=== PATIENT | female | born 1975 | race Caucasian/White ===

== ENCOUNTER 2017-10-30 14:25 | Inpatient (IN) | payer OTHER ==
[2017-10-30 17:33] VITALS: BMI 32.2
--- NOTE | 2017-10-30 21:32 | HP ---
COWS - Scale Resting Pulse: 1= [place] 81-100 Sweatin=Flushed/Facial Moisture Restless Observation: 1= Difficult to Sit Still Pupil Size: 0= Normal to Room Light Bone or Joint Aches: 2= Severe Diffuse Aches Runny Nose/ Eye Tearin= Runny Nose/Eyes GI Upset > 30mins: 2= Nausea/Diarrhea (diarrhea x 3) Tremor Observation: 4= Gross Tremor/Twitching Yawning Observation: 0= None Anxiety or Irritability: 1=Feels Anxious/Irritable Goose Flesh Skin: 0=Smooth Skin COWS Score: 15 CIWA Score - CIWA Score Nausea/Vomitin Muscle Tremors: 3 Anxiety: 3 Agitation: 3 Paroxysmal Sweats: 1-Minimal Palms Moist Orientation: 0-Oriented Tacttile Disturbances: 0-None Auditory Disturbances: 0-None Visual Disturbances: 0-None Headache: 0-None Present CIWA-Ar Total Score: 13 Admission ROS S - HPI Chief Complaint: Heroin and alcohol withdrawal symptoms Allergies/Adverse Reactions: Allergies Allergy/AdvReac Type Severity Reaction Status Date / Time No Known Allergies Allergy Verified 10/30/17 17:54 History of Present Illness: 42 years old female with a 10 years history pf alcohol and heroin dependence is seeking admission to detox. Patient has been to previous detox, last at [facility] 2 years ago. She reports medical history of right knee arthritis and depression. she reports 2 years of sobriety. Exam Limitations: No Limitations - Ebola screening Have you traveled outside of the country in the last 21 days: No Have you had contact with anyone from an Ebola affected area: No Have you been sick,other than usual withdrawal symptoms: No Do you have a fever: No - Review of Systems Constitutional: Chills, Loss of Appetite, Malaise, Night Sweats, Changes in sleep, Weakness EENT: reports: No Symptoms Reported Respiratory: reports: No Symptoms reported Cardiac: reports: No Symptoms Reported GI: reports: Diarrhea (x 3), Poor Appetite, Poor Fluid Intake, Vomiting, Abdominal cramping : reports: No Symptoms Reported Musculoskeletal: reports: No Symptoms Reported Integumentary: reports: Dryness, Flushing Neuro: reports: Tingling, Tremors Endocrine: reports: No Symptoms Reported Hematology: reports: No Symptoms Reported Psychiatric: reports: Orientated x3, Anxious, Depressed Other Systems: Reviewed and Negative Patient History - Patient Medical History Hx Anemia: No Hx Asthma: No Hx Chronic Obstructive Pulmonary Disease (COPD): No Hx Cancer: No Hx Cardiac Disorders: No Hx Hypertension: No Hx Seizures: No Hx Diabetes: No Hx Gastrointestinal Disorders: No Hx Liver Disease: No Hx Genitourinary Disorders: No Hx Sexually Transmitted Disorders: No Hx Renal Disease (ESRD): No Hx Thyroid Disease: No Hx Human Immunodeficiency Virus (HIV): No (Negative 2018) Hx Hepatitis C: No Hx Depression: Yes Hx Suicide Attempt: No Hx Bipolar Disorder: No Hx Schizophrenia: No - Patient Surgical History Past Surgical History: Yes Hx Neurologic Surgery: No Hx Cataract Extraction: No Hx Cardiac Surgery: No Hx Lung Surgery: No Hx Abdominal Surgery: No Hx Appendectomy: No Hx Cholecystectomy: Yes (1 month ago [facility] Hx Genitourinary Surgery: No Hx Orthopedic Surgery: No Anesthesia Reaction: No - PPD History Previous Implant?: Yes Documented Results: Negative w/o proof Implanted On Prior R Admission?: No - Reproductive History Last Menstrual Period: 10/22/17 Patient : No - Smoking Cessation Smoking history: Current every day smoker Have you smoked in the past 12 months: Yes Aproximately how many cigarettes per day: 5 Hx Chewing Tobacco Use: No Initiated information on smoking cessation: Yes 'Breaking Loose' booklet given: 10/30/17 - Substances Abused Heroin Route: Inhalation Frequency: Daily Amount used: 10 bags Age of first use: 25 Date of Last Use: 10/29/17 Alcohol Route: Oral Frequency: Daily Amount used: 7-8 beers Age of first use: 11 Date of Last Use: 10/29/17 Crack Route: Smoking Frequency: Daily Amount used: $1000 Age of first use: 40 Date of Last Use: 10/29/17 Family Disease History - Family Disease History Family History: Denies Admission Physical Exam BHS - Vital Signs Vital Signs: Vital Signs - 24 hr 10/30/17 17:31 Temperature 98.3 F Pulse Rate 84 Respiratory 20 Rate Blood Pressure 138/91 - Physical General Appearance: Yes: Moderate Distress, Tremorous, Irritable, Sweating, Anxious HEENTM: Yes: Normal ENT Inspection, Normal Voice, MARYBETH Respiratory: Yes: Lungs Clear, Normal Breath Sounds, No Respiratory Distress Neck: Yes: Supple Breast: Yes: Breast Exam Deferred Cardiology: Yes: Regular Rhythm, Regular Rate Abdominal: Yes: Normal Bowel Sounds Genitourinary: Yes: Within Normal Limits Back: Yes: Normal Inspection Musculoskeletal: Yes: Back pain, Muscle Pain Extremities: Yes: Tremors Neurological: Yes: Alert, Normal Mood/Affect Integumentary: Yes: Warm Lymphatic: Yes: Within Normal Limits - Diagnostic (1) Alcohol dependence with uncomplicated withdrawal Current Visit: Yes Status: Chronic (2) Opioid dependence with withdrawal Current Visit: Yes Status: Chronic (3) Cocaine dependence, uncomplicated Current Visit: Yes Status: Chronic (4) Arthritis Current Visit: Yes Status: Chronic Cleared for Admission [facility] - Detox or Rehab [facility] Level of Care: Medically Managed Detox Regimen/Protocol: Methadone/Librium [facility] Breath Alcohol Content Breath Alcohol Content: 0 Urine Drug Screen - Results Drug Screen Negative: No Urine Drug Screen Results: FADUMO-Cocaine, OPI-Opiates, BZO-Benzodiazepines
[2017-10-30] MEDS ORDERED: MAGNESIUM HYDROX 2400MG/30ML ORAL SUSPENSION 30 ML CUP PO PRN (21:40)
[2017-10-30] MEDS ORDERED: guaiFENesin/D-METHORPHAN HB 10 ML UNIT-DOSE CUPS PO PRN (21:40)
[2017-10-30] MEDS ORDERED: P-EPHED 60MG/TRIPROLIDI 2.5MG TABLET PO PRN (21:40)
[2017-10-30] MEDS ORDERED: ACETAMINOPHEN 325 MG TABLET (FP) PO PRN (21:40)
[2017-10-30] MEDS ORDERED: MAG HYDROX/AL HYDROX/SIMETH 30 ML UNIT-DOSE CUP PO PRN (21:40)
[2017-10-30] MEDS ORDERED: LOPERAMIDE HCL 2 MG CAPSULE PO PRN (21:40)
[2017-10-30] MEDS ORDERED: METHADONE HCL 10 MG TABLET (FOR DETOX USE ONLY) PO ONE ×4 (21:40→23:00)
[2017-10-30] MEDS ORDERED: MAGNESIUM CITRATE 300 ML BOTTLE PO PRN (21:40)
[2017-10-30] MEDS ORDERED: MENTHOL/PHENOL 1 EACH UD MM PRN (21:40)
[2017-10-30] MEDS ORDERED: chlordiazePOXIDE HCL 25 MG CAPSULE PO PRN (21:43)
[2017-10-30] MEDS ORDERED: MELATONIN 5 MG TABLETS PO PRN (22:00)
[2017-10-30] MEDS ORDERED: chlordiazePOXIDE HCL 25 MG CAPSULE PO SCH (23:00)
[2017-10-30] MEDS: chlordiazePOXIDE HCL 25 MG CAPSULE PO SCH (23:03)
[2017-10-30] MEDS: THIAMINE HCL 100 MG TABLET (FP) PO SCH (23:08)
[2017-10-31 01:30] LABS: URINE APPEARANCE CLOUDY; URINE BILIRUBIN NEGATIVE (<2.0 mg/dL); URINE COLOR YELLOW; URINE GLUCOSE (UA) NEGATIVE (NEGATIVE); URINE KETONE NEGATIVE (NEGATIVE); URINE LEUK ESTERASE NEGATIVE (NEGATIVE); URINE NITRITE POSITIVE (NEGATIVE); URINE PROTEIN NEGATIVE (NEGATIVE); URINE UROBILINOGEN NEGATIVE mg/dL (0.2-1.0)
[2017-10-31 02:00] LABS: EPI CELLS MODERATE /HPF (FEW); URINE BACTERIA RARE /hpf (NONE SEEN); URINE MUCUS MANY
[2017-10-31] MEDS: chlordiazePOXIDE HCL 25 MG CAPSULE PO SCH ×4 (05:14→22:10)
--- NOTE | 2017-10-31 08:55 | PN ---
[facility] CIWA - CIWA Score Nausea/Vomitin Muscle Tremors: 3 Anxiety: 3 Agitation: 3 Paroxysmal Sweats: 1-Minimal Palms Moist Orientation: 0-Oriented Tacttile Disturbances: 1-Very Mild Itch/Numbness Auditory Disturbances: 1-Very Mild Visual Disturbances: 0-None Headache: 2-Mild CIWA-Ar Total Score: 17 [facility]HS COWS - Scale Resting Pulse: 0= [place] 80 or Below Sweatin= Chills/Flushing Restless Observation: 3= Extraneous Movement Pupil Size: 1= Pupils >than Normal Bone or Joint Aches: 2= Severe Diffuse Aches Runny Nose/ Eye Tearin= Runny Nose/Eyes GI Upset > 30mins: 3= Vomiting/Diarrhea Tremor Observation of Outstretched Hands: 2= Slight Tremor Visible Yawning Observation: 1= 1-2x During Session Anxiety or Irritability: 2=Irritable/Anxious Goose Flesh Skin: 0=Smooth Skin COWS Score: 17 [facility] Progress Note (SOAP) Subjective: ALERT,IRRITABLE,ANXIOUS,INTERRUPTED SLEEP,TREMOR,PAIN IN THE BODY AND BACK Objective: 10/31/17 08:52 Vital Signs Temperature 97.9 F 10/31/17 07:15 Pulse Rate 64 10/31/17 07:15 Respiratory Rate 18 10/31/17 07:15 Blood Pressure 107/63 10/31/17 07:15 O2 Sat by Pulse Oximetry (%) EKG NSR,NORMAL ECG,PROLONG QT 386/442 NO CHEST PAIN,NO SOB,NO DIZZINESS Laboratory Last Values Urine Color Yellow 10/31/17 00:03 Urine Appearance Cloudy 10/31/17 00:03 Urine pH 6.0 (5.0-8.0) 10/31/17 00:03 Ur Specific [place] 1.013 (1.001-1.035) 10/31/17 00:03 Urine Protein Negative (NEGATIVE) 10/31/17 00:03 Urine Glucose (UA) Negative (NEGATIVE) 10/31/17 00:03 Urine Ketones Negative (NEGATIVE) 10/31/17 00:03 Urine Blood Negative (NEGATIVE) 10/31/17 00:03 Urine Nitrite Positive (NEGATIVE) 10/31/17 00:03 Urine Bilirubin Negative (<2.0 mg/dL) 10/31/17 00:03 Urine Urobilinogen Negative mg/dL (0.2-1.0) 10/31/17 00:03 Ur Leukocyte Esterase Negative (NEGATIVE) 10/31/17 00:03 Urine WBC (Auto) 14 /hpf (3-5) 10/31/17 00:03 Urine RBC (Auto) 1 /hpf (0-3) 10/31/17 00:03 Ur Epithelial Cells Moderate /HPF (FEW) 10/31/17 00:03 Urine Bacteria Rare /hpf (NONE SEEN) 10/31/17 00:03 Urine Mucus Many 10/31/17 00:03 WITHDRAWAL SYMPTOM NO URINARY SYMPTOM 10/31/17 08:55 LABS PENDING Assessment: 10/31/17 08:55 CONTINUE DETOX Plan: CONTINUE DETOX,ENCOURAGE ORAL FLUID,
[2017-10-31] MEDS ORDERED: METHADONE HCL 10 MG TABLET (FOR DETOX USE ONLY) PO SCH ×2 (10:00)
[2017-10-31] MEDS: SERTRALINE HCL 50 MG TABLET (FP) PO SCH (10:11)
[2017-10-31] MEDS: PRENATAL VITAMINS W/ FOLIC ACID TABLET (FP) PO SCH (10:11)
[2017-10-31] MEDS: QUEtiapine FUMARATE 200 MG TABLET PO SCH (10:12)
[2017-10-31 10:17] LABS: HEMOGLOBIN 11.1 GM/dL (10.7-15.3); MCH 25.9 pg (25.7-33.7); MCHC 32.7 g/dl (32.0-36.0); MEAN CELL VOLUME 79.4 fl (80-96); MEAN PLT VOLUME 7.7 fl (7.5-11.1); PLATELET COUNT 366 K/MM3 (134-434); RBC 4.28 M/mm3 (3.60-5.2); RDW 15.2 % (11.6-15.6); WHITE BLOOD COUNT 8.1 K/mm3 (4.0-10.0)
[2017-10-31 10:56] LABS: CHLORIDE 106 mmol/L (98-107); POTASSIUM 3.2 mmol/L (3.5-5.1); SODIUM 142 mmol/L (136-145)
--- NOTE | 2017-10-31 11:18 | CONSULT ---
[facility] Psychiatric Consult - Data Date of interview: 10/31/17 Admission source: [facility] Identifying data: This is 42 years old female, single mother of one, unemployed , living at [facility], [place], with no psychiatric hospitalization history,m with a 10 years history pf alcohol and heroin dependence is seeking admission to detox, reporting withdrawal symptoms. Substance Abuse History: Smoking history: Current every day smoker. Have you smoked in the past 12 months: Yes. Aproximately how many cigarettes per day: 5. Hx Chewing Tobacco Use: No. Initiated information on smoking cessation: Yes. 'Breaking Loose' booklet given: 10/30/17. - Substances Abused. Heroin. Route: Inhalation. Frequency: Daily. Amount used: 10 bags. Age of first use: 25. Date of Last Use: 10/29/17. Alcohol. Route: Oral. Frequency: Daily. Amount used: 7-8 beers. Age of first use: 11. Date of Last Use: 10/29/17. Crack. Route: Smoking. Frequency: Daily. Amount used: $ 1000. Age of first use: 40. Date of Last Use: 10/29/17 Medical History: Patient reports right knee arthritis history Psychiatric History: Rosa person history of depression, reports no psychiatric hospitalization history, denies suicidal, homicidal history, reports taking for a long time: Zoloft 100mg poqd. Seroquel 200mg poqd. Seroquel 600mg po qhs. Patient insist on to continue preadmission medications inspite of MD warning poatient can be oversedated, patienty responded:" this is my 3rd detox and all the time I was given my home medications" Physical/Sexual Abuse/Trauma History: Denies Additional Comment: Zoloft 100mg poqd. Seroquel 200mg poqd. Seroquel 600mg po qhs Mental Status Exam - Mental Status Exam Alert and Oriented to: Person Cognitive Function: Fair Patient Appearance: Unkempt Mood: Apprehensive Affect: Mood Congruent Patient Behavior: Cooperative Speech Pattern: Appropriate Voice Loudness: Mildly Soft/Quiet Thought Process: Goal Oriented Thought Disorder: Being Controlled Hallucinations: Denies Suicidal Ideation: Denies Homicidal Ideation: Denies Insight/Judgement: Fair Sleep: Difficulty falling asleep Appetite: Weight gain Muscle strength/Tone: Mild Hypotonicity Gait/Station: Shuffling Additional Comments: Zoloft 100mg poqd. Seroquel 200mg poqd. Seroquel 600mg po qhs Psychiatric Findings - Problem List ([place] 1, 2,3) (1) Nicotine dependence Current Visit: Yes Status: Acute (2) Alcohol dependence with uncomplicated withdrawal Current Visit: Yes Status: Chronic (3) Cocaine dependence, uncomplicated Current Visit: Yes Status: Chronic (4) Opioid dependence with withdrawal Current Visit: Yes Status: Chronic - Initial Treatment Plan Initial Treatment Plan: Zoloft 100mg poqd. Seroquel 200mg poqd. Seroquel 600mg po qhs
[2017-10-31 12:06] LABS: ALBUMIN 3.2 g/dl (3.4-5.0); ALK PHOS 69 U/L (45-117); ANION GAP 8 (8-16); BILIRUBIN,TOTAL 0.2 mg/dL (0.2-1.0); BLOOD UREA NITROGEN 8 mg/dL (7-18); CALCIUM 8.5 mg/dL (8.5-10.1); CO2 28 mmol/L (21-32); CREATININE 0.7 mg/dL (0.55-1.02); GLUCOSE,RANDOM 124 mg/dL (74-106); SGOT/AST 6 U/L (15-37); SGPT/ALT 11 U/L (12-78); TOT PROT 6.6 g/dl (6.4-8.2)
--- NOTE | 2017-10-31 13:32 | EKG ---
Test Reason : Blood Pressure : / mmHG Vent. Rate : 079 BPM Atrial Rate : 079 BPM P-R Int : 138 ms QRS Dur : 080 ms QT Int : 386 ms P-R-T Axes : 025 009 012 degrees QTc Int : 442 ms NORMAL SINUS RHYTHM NORMAL ECG NO PREVIOUS ECGS AVAILABLE Confirmed by SILVIA WALKER, YOEL ([id number]) on 10/31/2017 1:32:05 PM Referred By: Confirmed By:YOEL VEGA MD
[2017-10-31] MEDS: chlordiazePOXIDE HCL 25 MG CAPSULE PO PRN (14:09)
[2017-10-31 14:32] LABS: URINE APPEARANCE SLCLOUDY; URINE BILIRUBIN NEGATIVE (<2.0 mg/dL); URINE COLOR YELLOW; URINE GLUCOSE (UA) 1+ (NEGATIVE); URINE KETONE NEGATIVE (NEGATIVE); URINE LEUK ESTERASE NEGATIVE (NEGATIVE); URINE NITRITE POSITIVE (NEGATIVE); URINE PROTEIN NEGATIVE (NEGATIVE); URINE UROBILINOGEN NEGATIVE mg/dL (0.2-1.0)
[2017-10-31 14:41] LABS: EPI CELLS FEW /HPF (FEW); URINE BACTERIA MODERATE /hpf (NONE SEEN); URINE MUCUS RARE
[2017-10-31] MEDS: THIAMINE HCL 100 MG TABLET (FP) PO SCH (22:09)
[2017-10-31] MEDS: QUEtiapine FUMARATE 300 MG TABLET PO SCH (22:09)
[2017-10-31] MEDS ORDERED: chlordiazePOXIDE HCL 25 MG CAPSULE PO SCH (23:00)
[2017-11-01] MEDS: chlordiazePOXIDE HCL 25 MG CAPSULE PO SCH ×3 (05:07→17:29)
--- NOTE | 2017-11-01 09:22 | PN ---
S CIWA - CIWA Score Nausea/Vomitin Muscle Tremors: 3 Anxiety: 2 Agitation: 2 Paroxysmal Sweats: 1-Minimal Palms Moist Orientation: 0-Oriented Tacttile Disturbances: 1-Very Mild Itch/Numbness Auditory Disturbances: 1-Very Mild Visual Disturbances: 0-None Headache: 2-Mild CIWA-Ar Total Score: 15 [facility] COWS - Scale Resting Pulse: 0= [place] 80 or Below Sweatin= Chills/Flushing Restless Observation: 3= Extraneous Movement Pupil Size: 1= Pupils >than Normal Bone or Joint Aches: 2= Severe Diffuse Aches Runny Nose/ Eye Tearin= Runny Nose/Eyes GI Upset > 30mins: 2= Nausea/Diarrhea Tremor Observation of Outstretched Hands: 2= Slight Tremor Visible Yawning Observation: 1= 1-2x During Session Anxiety or Irritability: 2=Irritable/Anxious Goose Flesh Skin: 0=Smooth Skin COWS Score: 16 S Progress Note (SOAP) Subjective: ALERT,IRRITABLE,ANXIOUS,INTERRUPTED SLEEP,TREMOR,PAIN IN THE BODY AND BACK Objective: 11/01/17 09:20 Vital Signs Temperature 98.1 F 11/01/17 09:16 Pulse Rate 71 11/01/17 09:16 Respiratory Rate 18 11/01/17 09:16 Blood Pressure 98/58 11/01/17 09:16 O2 Sat by Pulse Oximetry (%) Laboratory Last Values WBC 8.1 K/mm3 (4.0-10.0) 10/31/17 07:30 RBC 4.28 M/mm3 (3.60-5.2) 10/31/17 07:30 Hgb 11.1 GM/dL (10.7-15.3) 10/31/17 07:30 Hct 34.0 % (32.4-45.2) 10/31/17 07:30 MCV 79.4 fl (80-96) L 10/31/17 07:30 MCH 25.9 pg (25.7-33.7) 10/31/17 07:30 MCHC 32.7 g/dl (32.0-36.0) 10/31/17 07:30 RDW 15.2 % (11.6-15.6) 10/31/17 07:30 Plt Count 366 K/MM3 (134-434) 10/31/17 07:30 MPV 7.7 fl (7.5-11.1) 10/31/17 07:30 Sodium 142 mmol/L (136-145) 10/31/17 07:30 Potassium 3.2 mmol/L (3.5-5.1) L 10/31/17 07:30 Chloride 106 mmol/L (98-107) 10/31/17 07:30 Carbon Dioxide 28 mmol/L (21-32) 10/31/17 07:30 Anion Gap 8 (8-16) 10/31/17 07:30 BUN 8 mg/dL (7-18) 10/31/17 07:30 Creatinine 0.7 mg/dL (0.55-1.02) 10/31/17 07:30 Creat Clearance w eGFR > 60 (>60) 10/31/17 07:30 Random Glucose 124 mg/dL (74-106) H 10/31/17 07:30 Calcium 8.5 mg/dL (8.5-10.1) 10/31/17 07:30 Total Bilirubin 0.2 mg/dL (0.2-1.0) 10/31/17 07:30 AST 6 U/L (15-37) L 10/31/17 07:30 ALT 11 U/L (12-78) L 10/31/17 07:30 Alkaline Phosphatase 69 U/L (45-117) 10/31/17 07:30 Total Protein 6.6 g/dl (6.4-8.2) 10/31/17 07:30 Albumin 3.2 g/dl (3.4-5.0) L 10/31/17 07:30 Urine Color Yellow 10/31/17 12:00 Urine Appearance Slcloudy 10/31/17 12:00 Urine pH 6.0 (5.0-8.0) 10/31/17 12:00 Ur Specific [place] 1.017 (1.001-1.035) 10/31/17 12:00 Urine Protein Negative (NEGATIVE) 10/31/17 12:00 Urine Glucose (UA) 1+ (NEGATIVE) H 10/31/17 12:00 Urine Ketones Negative (NEGATIVE) 10/31/17 12:00 Urine Blood Negative (NEGATIVE) 10/31/17 12:00 Urine Nitrite Positive (NEGATIVE) 10/31/17 12:00 Urine Bilirubin Negative (<2.0 mg/dL) 10/31/17 12:00 Urine Urobilinogen Negative mg/dL (0.2-1.0) 10/31/17 12:00 Ur Leukocyte Esterase Negative (NEGATIVE) 10/31/17 12:00 Urine WBC (Auto) 4 /hpf (3-5) 10/31/17 12:00 Urine RBC (Auto) 3 /hpf (0-3) 10/31/17 12:00 Ur Epithelial Cells Few /HPF (FEW) 10/31/17 12:00 Urine Bacteria Moderate /hpf (NONE SEEN) 10/31/17 12:00 Urine Mucus Rare 10/31/17 12:00 RPR Titer Nonreactive (NONREACTIVE) 10/31/17 07:30 Assessment: 11/01/17 09:21 WITHDRAWAL SYMPTOM Plan: CONTINUE DETOX,K IS 3.4,KDUR 20 MEQ PO BID,INITIAL GLUCOSE IS 124,BGM MONITORING DAILY
[2017-11-01] MEDS ORDERED: METHADONE HCL 5 MG TABLET (FOR DETOX USE ONLY) PO SCH (10:00)
[2017-11-01] MEDS: SERTRALINE HCL 50 MG TABLET (FP) PO SCH (10:19)
[2017-11-01] MEDS: PRENATAL VITAMINS W/ FOLIC ACID TABLET (FP) PO SCH (10:20)
[2017-11-01] MEDS: QUEtiapine FUMARATE 200 MG TABLET PO SCH (10:20)
[2017-11-01] MEDS: METHADONE HCL 5 MG TABLET (FOR DETOX USE ONLY) PO SCH (10:20)
[2017-11-01] MEDS: POTASSIUM CHLORIDE TABS 20 MEQ TABLET.ER (FP) PO SCH ×2 (10:21→22:09)
[2017-11-01] MEDS: IBUPROFEN 400 MG TABLET (FP) PO PRN (14:13)
[2017-11-01] MEDS: chlordiazePOXIDE HCL 25 MG CAPSULE PO PRN (14:14)
[2017-11-01] MEDS: THIAMINE HCL 100 MG TABLET (FP) PO SCH (22:09)
[2017-11-01] MEDS: QUEtiapine FUMARATE 300 MG TABLET PO SCH (22:09)
[2017-11-01] MEDS: chlordiazePOXIDE 5 MG CAPSULE PO SCH (22:13)
[2017-11-01] MEDS ORDERED: chlordiazePOXIDE 5 MG CAPSULE PO SCH (23:00)
[2017-11-02] MEDS: chlordiazePOXIDE HCL 25 MG CAPSULE PO PRN ×2 (00:41→12:39)
[2017-11-02] MEDS: chlordiazePOXIDE 5 MG CAPSULE PO SCH ×3 (05:05→17:47)
[2017-11-02] MEDS: METHADONE HCL 5 MG TABLET (FOR DETOX USE ONLY) PO SCH (10:17)
[2017-11-02] MEDS: PRENATAL VITAMINS W/ FOLIC ACID TABLET (FP) PO SCH (10:17)
[2017-11-02] MEDS: SERTRALINE HCL 50 MG TABLET (FP) PO SCH (10:17)
[2017-11-02] MEDS: POTASSIUM CHLORIDE TABS 20 MEQ TABLET.ER (FP) PO SCH ×2 (10:17→22:12)
[2017-11-02] MEDS: QUEtiapine FUMARATE 200 MG TABLET PO SCH (10:17)
--- NOTE | 2017-11-02 11:57 | PN ---
[facility] Progress Note (SOAP) Subjective: ALERT,IRRITABLE,ANXIOUS,INTERRUPTED SLEEP,PAIN IN THE BODY Objective: 11/02/17 11:56 Vital Signs Temperature 97.0 F L 11/02/17 09:10 Pulse Rate 84 11/02/17 09:10 Respiratory Rate 18 11/02/17 09:10 Blood Pressure 102/56 11/02/17 09:10 O2 Sat by Pulse Oximetry (%) Assessment: 11/02/17 11:56 WITHDRAWAL SYMPTOM Plan: CONTINUE DETOX
[2017-11-02] MEDS: QUEtiapine FUMARATE 300 MG TABLET PO SCH (22:12)
[2017-11-02] MEDS: THIAMINE HCL 100 MG TABLET (FP) PO SCH (22:12)
[2017-11-02] MEDS: chlordiazePOXIDE HCL 10 MG CAPSULE PO SCH (22:12)
[2017-11-02] MEDS ORDERED: chlordiazePOXIDE HCL 10 MG CAPSULE PO SCH (23:00)
[2017-11-03] MEDS: chlordiazePOXIDE HCL 10 MG CAPSULE PO SCH ×3 (05:24→17:24)
[2017-11-03] MEDS ORDERED: METHADONE HCL 10 MG TABLET (FOR DETOX USE ONLY) PO SCH ×2 (10:00)
[2017-11-03] MEDS: SERTRALINE HCL 50 MG TABLET (FP) PO SCH (10:16)
[2017-11-03] MEDS: QUEtiapine FUMARATE 200 MG TABLET PO SCH (10:16)
[2017-11-03] MEDS: POTASSIUM CHLORIDE TABS 20 MEQ TABLET.ER (FP) PO SCH ×2 (10:16→22:14)
[2017-11-03] MEDS: PRENATAL VITAMINS W/ FOLIC ACID TABLET (FP) PO SCH (10:16)
--- NOTE | 2017-11-03 12:14 | PN ---
[facility] Progress Note (SOAP) Subjective: ALERT,IRRITABLE,ANXIOUS,INTERRUPTED SLEEP,PAIN IN THE BODY Objective: 11/03/17 12:14 Vital Signs Temperature 97.1 F L 11/03/17 09:19 Pulse Rate 101 H 11/03/17 09:19 Respiratory Rate 16 11/03/17 09:19 Blood Pressure 115/64 11/03/17 09:19 O2 Sat by Pulse Oximetry (%) Assessment: 11/03/17 12:14 WITHDRAWAL SYMPTOM Plan: CONTINUE DETOX
[2017-11-03] MEDS: IBUPROFEN 400 MG TABLET (FP) PO PRN (17:23)
[2017-11-03] MEDS: QUEtiapine FUMARATE 300 MG TABLET PO SCH (22:14)
[2017-11-03] MEDS: THIAMINE HCL 100 MG TABLET (FP) PO SCH (22:14)
[2017-11-03] MEDS: hydrOXYzine PAMOATE 50 MG CAPSULE (FP) PO PRN (22:16)
[2017-11-04] MEDS ORDERED: METHADONE HCL 5 MG TABLET (FOR DETOX USE ONLY) PO SCH ×2 (06:00)
[2017-11-04] MEDS ORDERED: BISACODYL 5 MG TABLET.DR (FP) PO ONE (10:37)
[2017-11-04] MEDS: PRENATAL VITAMINS W/ FOLIC ACID TABLET (FP) PO SCH (10:42)
[2017-11-04] MEDS: QUEtiapine FUMARATE 200 MG TABLET PO SCH (10:42)
[2017-11-04] MEDS: SERTRALINE HCL 50 MG TABLET (FP) PO SCH (10:42)
[2017-11-04] MEDS: POTASSIUM CHLORIDE TABS 20 MEQ TABLET.ER (FP) PO SCH ×2 (10:42→21:39)
[2017-11-04] MEDS: hydrOXYzine PAMOATE 50 MG CAPSULE (FP) PO PRN ×2 (10:44→19:05)
--- NOTE | 2017-11-04 13:04 | PN ---
[facility] Progress Note (SOAP) Subjective: S: Legs hurting/cramping, chills, tremor, constipated x3 days, anxious Objective: 11/04/17 13:04 Last Vital Signs Temp Pulse Resp BP Pulse Ox 97.7 F 79 18 110/53 11/04/17 09:43 11/04/17 09:43 11/04/17 09:43 11/04/17 09:43 Laboratory Tests 10/31/17 10/31/17 10/31/17 00:03 07:30 07:30 WBC 8.1 RBC 4.28 Hgb 11.1 Hct 34.0 MCV 79.4 L MCH 25.9 MCHC 32.7 RDW 15.2 Plt Count 366 MPV 7.7 Sodium 142 Potassium 3.2 L Chloride 106 Carbon Dioxide 28 Anion Gap 8 BUN 8 Creatinine 0.7 Creat Clearance w eGFR > 60 POC Glucometer Random Glucose 124 H Calcium 8.5 Total Bilirubin 0.2 AST 6 L ALT 11 L Alkaline Phosphatase 69 Total Protein 6.6 Albumin 3.2 L Urine Color Yellow Urine Appearance Cloudy Urine pH 6.0 Ur Specific [place] 1.013 Urine Protein Negative Urine Glucose (UA) Negative Urine Ketones Negative Urine Blood Negative Urine Nitrite Positive Urine Bilirubin Negative Urine Urobilinogen Negative Ur Leukocyte Esterase Negative Urine WBC (Auto) 14 Urine RBC (Auto) 1 Ur Epithelial Cells Moderate Urine Bacteria Rare Urine Mucus Many RPR Titer 10/31/17 10/31/17 11/02/17 07:30 12:00 05:05 WBC RBC Hgb Hct MCV MCH MCHC RDW Plt Count MPV Sodium Potassium Chloride Carbon Dioxide Anion Gap BUN Creatinine Creat Clearance w eGFR POC Glucometer 107 Random Glucose Calcium Total Bilirubin AST ALT Alkaline Phosphatase Total Protein Albumin Urine Color Yellow Urine Appearance Slcloudy Urine pH 6.0 Ur Specific [place] 1.017 Urine Protein Negative Urine Glucose (UA) 1+ H Urine Ketones Negative Urine Blood Negative Urine Nitrite Positive Urine Bilirubin Negative Urine Urobilinogen Negative Ur Leukocyte Esterase Negative Urine WBC (Auto) 4 Urine RBC (Auto) 3 Ur Epithelial Cells Few Urine Bacteria Moderate Urine Mucus Rare RPR Titer Nonreactive 11/03/17 11/04/17 05:23 08:00 WBC RBC Hgb Hct MCV MCH MCHC RDW Plt Count MPV Sodium Potassium 4.6 Chloride Carbon Dioxide Anion Gap BUN Creatinine Creat Clearance w eGFR POC Glucometer 97 Random Glucose Calcium Total Bilirubin AST ALT Alkaline Phosphatase Total Protein Albumin Urine Color Urine Appearance Urine pH Ur Specific [place] Urine Protein Urine Glucose (UA) Urine Ketones Urine Blood Urine Nitrite Urine Bilirubin Urine Urobilinogen Ur Leukocyte Esterase Urine WBC (Auto) Urine RBC (Auto) Ur Epithelial Cells Urine Bacteria Urine Mucus RPR Titer Labs reviewed: noted with hypokalemia and UTI Assessment: 11/04/17 13:06 Withdrawal symptoms Noted with hypokalemia and UTI c/o constipation (doesn't want citroma) Plan: Continue detox Acute constipation: dulcolax 10mg PO x 1 dose Hypokalemia: supplemented Acute UTI: encouraged PO hydration (water) Send urine culture Start ciprofloxacin 500mg PO q12hr x 3 days
[2017-11-04] MEDS: QUEtiapine FUMARATE 300 MG TABLET PO SCH (21:38)
[2017-11-04] MEDS: IBUPROFEN 400 MG TABLET (FP) PO PRN (21:38)
[2017-11-04] MEDS: THIAMINE HCL 100 MG TABLET (FP) PO SCH (23:05)
--- NOTE | 2017-11-05 08:04 | PN ---
S Progress Note (SOAP) Subjective: ALERT,NO COMPLAINT Objective: 11/05/17 08:03 Vital Signs Temperature 97.7 F 11/05/17 07:11 Pulse Rate 71 11/05/17 07:11 Respiratory Rate 18 11/05/17 07:11 Blood Pressure 118/63 11/05/17 07:11 O2 Sat by Pulse Oximetry (%) Assessment: 11/05/17 08:03 DETOX COMPLETED,NO WITHDRAWAL SYMPTOM Plan: DISCHARGE TODAY,FOLLOW UP WITH AFTER CARE PROGRAM ARRANGEMENT
--- NOTE | 2017-11-05 08:10 | DS ---
[facility] Detox Discharge Summary Admission Date: 10/30/17 Discharge Date: 11/05/17 - History Present History: Alcohol Dependence, Cocaine Dependence, Opioid Dependence Additional Comments: FOLLOW UP WITH AFTER CARE PROGRAM ARRANGEMENT REPEAT K IS 4.6,D/C K DUR Pertinent Past History: ARTHRITIS - Physical Exam Results Vital Signs: Vital Signs Temperature 97.7 F 11/05/17 07:11 Pulse Rate 71 11/05/17 07:11 Respiratory Rate 18 11/05/17 07:11 Blood Pressure 118/63 11/05/17 07:11 O2 Sat by Pulse Oximetry (%) Pertinent Admission Physical Exam Findings: WITHDRAWAL SIGNS AND SYMPTOM Laboratory Last Values WBC 8.1 K/mm3 (4.0-10.0) 10/31/17 07:30 RBC 4.28 M/mm3 (3.60-5.2) 10/31/17 07:30 Hgb 11.1 GM/dL (10.7-15.3) 10/31/17 07:30 Hct 34.0 % (32.4-45.2) 10/31/17 07:30 MCV 79.4 fl (80-96) L 10/31/17 07:30 MCH 25.9 pg (25.7-33.7) 10/31/17 07:30 MCHC 32.7 g/dl (32.0-36.0) 10/31/17 07:30 RDW 15.2 % (11.6-15.6) 10/31/17 07:30 Plt Count 366 K/MM3 (134-434) 10/31/17 07:30 MPV 7.7 fl (7.5-11.1) 10/31/17 07:30 Sodium 142 mmol/L (136-145) 10/31/17 07:30 Potassium 4.6 mmol/L (3.5-5.1) 11/04/17 08:00 Chloride 106 mmol/L (98-107) 10/31/17 07:30 Carbon Dioxide 28 mmol/L (21-32) 10/31/17 07:30 Anion Gap 8 (8-16) 10/31/17 07:30 BUN 8 mg/dL (7-18) 10/31/17 07:30 Creatinine 0.7 mg/dL (0.55-1.02) 10/31/17 07:30 Creat Clearance w eGFR > 60 (>60) 10/31/17 07:30 POC Glucometer 99 UNITS (80-120) 11/05/17 06:13 Random Glucose 124 mg/dL (74-106) H 10/31/17 07:30 Calcium 8.5 mg/dL (8.5-10.1) 10/31/17 07:30 Total Bilirubin 0.2 mg/dL (0.2-1.0) 10/31/17 07:30 AST 6 U/L (15-37) L 10/31/17 07:30 ALT 11 U/L (12-78) L 10/31/17 07:30 Alkaline Phosphatase 69 U/L (45-117) 10/31/17 07:30 Total Protein 6.6 g/dl (6.4-8.2) 10/31/17 07:30 Albumin 3.2 g/dl (3.4-5.0) L 10/31/17 07:30 Urine Color Yellow 10/31/17 12:00 Urine Appearance Slcloudy 10/31/17 12:00 Urine pH 6.0 (5.0-8.0) 10/31/17 12:00 Ur Specific [place] 1.017 (1.001-1.035) 10/31/17 12:00 Urine Protein Negative (NEGATIVE) 10/31/17 12:00 Urine Glucose (UA) 1+ (NEGATIVE) H 10/31/17 12:00 Urine Ketones Negative (NEGATIVE) 10/31/17 12:00 Urine Blood Negative (NEGATIVE) 10/31/17 12:00 Urine Nitrite Positive (NEGATIVE) 10/31/17 12:00 Urine Bilirubin Negative (<2.0 mg/dL) 10/31/17 12:00 Urine Urobilinogen Negative mg/dL (0.2-1.0) 10/31/17 12:00 Ur Leukocyte Esterase Negative (NEGATIVE) 10/31/17 12:00 Urine WBC (Auto) 4 /hpf (3-5) 10/31/17 12:00 Urine RBC (Auto) 3 /hpf (0-3) 10/31/17 12:00 Ur Epithelial Cells Few /HPF (FEW) 10/31/17 12:00 Urine Bacteria Moderate /hpf (NONE SEEN) 10/31/17 12:00 Urine Mucus Rare 10/31/17 12:00 RPR Titer Nonreactive (NONREACTIVE) 10/31/17 07:30 Vital Signs Temperature 97.7 F 11/05/17 07:11 Pulse Rate 71 11/05/17 07:11 Respiratory Rate 18 11/05/17 07:11 Blood Pressure 118/63 11/05/17 07:11 O2 Sat by Pulse Oximetry (%) - Treatment Hospital Course: Detox Protocol Followed, Detoxed Safely, Responded well, Discharged Condition Good, Rehab Referral Accepted Patient has Accepted a Rehab Referral to: [facility] - Medication Discharge Medications: Ambulatory Orders Quetiapine Fumarate [Seroquel -] 600 mg PO HS 10/30/17 Sertraline HCl [Zoloft -] 200 mg PO DAILY 10/30/17 Varenicline Tartrate [Chantix -] 1 mg PO BID 10/30/17 Quetiapine Fumarate [Seroquel -] 200 mg PO DAILY #30 tablet 10/31/17 Quetiapine Fumarate [Seroquel -] 600 mg PO HS #30 tablet 10/31/17 Sertraline HCl [Zoloft -] 200 mg PO DAILY #30 tablet 10/31/17 levoFLOXacin [Levaquin -] 500 mg PO DAILY@0600 #7 tab MDD 1 11/05/17 - Diagnosis (1) Opioid dependence with withdrawal Current Visit: Yes Status: Acute (2) Alcohol dependence with uncomplicated withdrawal Current Visit: Yes Status: Acute (3) Arthritis Current Visit: Yes Status: Chronic (4) Cocaine dependence, uncomplicated Current Visit: Yes Status: Chronic (5) Hypokalemia Current Visit: Yes Status: Acute - AMA Did Patient Leave Against Medical Advice: No
--- NOTE | 2017-11-05 08:16 | PN ---
[facility] Progress Note Note: PATIENT IS RECEIVING LEVAQUIN 500 MGS PO DAILY FOR UTI,WILL CONTINUE FOR 4 MORE DAYS
[2017-11-05 10:25] VITALS: BP 106/47; PULSE 92; TEMP 97.3
== END 2017-11-05 09:13 | disposition home or self-care (01) | DRG 773 ==
LOC: YASAS 14:25 → Y6N 18:47
PROVIDERS: ADMIT Surgery; ATTEND Surgery
PROC: HZ2ZZZZ Detoxification Services for Substance Abuse Treatment (ICD-10-PCS; principal; 2017-10-30)
DX: F11.23 Opioid dependence with withdrawal (principal); F10.230 Alcohol dependence with withdrawal, uncomplicated; F14.20 Cocaine dependence, uncomplicated; E87.6 Hypokalemia; M12.9 Arthropathy, unspecified; F32.9 Major depressive disorder, single episode, unspecified; Z90.49 Acquired absence of other specified parts of digestive tract
CPT/HCPCS: 36415; 80053; 81003; 81015; 82962; 84132; 85027; 86593; 87086; 87186; 93005; 93010